=== PATIENT | female | born 1980 | race Caucasian/White ===

== ENCOUNTER 2016-07-07 09:35 | Outpatient (CLI) | payer MEDICAID ==
[~2016-07-07] VITALS: Ht 152.4 cm; Wt 70.4 kg
[~2016-07-07 09:35] MED LIST: FERR-18; PNV1TABL12
[2016-07-07 10:38] VITALS: BP 109/60; PULSE 64
[2016-07-07] MEDS: LACTATED RINGER'S 1,000 ML IV SCH ×2 (11:37→14:26)
[2016-07-07 15:37] LABS: ADD UMIC YES; URINE BILIRUBIN (Dip) NEGATIVE (NEGATIVE); URINE BLOOD (Dip) TRACE (NEGATIVE); URINE GLUCOSE (Dip) NEGATIVE (NEGATIVE); URINE KETONES (Dip) NEGATIVE (NEGATIVE); URINE LEUKOCYTE ESTERASE (Dip) 2+ (NEGATIVE); URINE NITRITE (Dip) NEGATIVE (NEGATIVE); URINE TOTAL PROTEIN (Dip) NEGATIVE (NEGATIVE); URINE UROBILINOGEN (Dip) 0.2 E.U./dL (0.1-1.0)
[2016-07-07 15:52] LABS: SQUAMOUS EPITHELIAL CELL,UR MODERATE; URINE COLOR LT. YELLOW (YELLOW); URINE RBCS 0-2 /HPF (0)
--- NOTE | 2016-07-07 22:15 | QN ---
Documentation Comment 36 years old with IUP at 38 weeks with history of section x 3, presented with complaint of mild lower abdominal cramps today. Denies any vaginal bleeding, decreased movement . Patient denies any other complaint, Denies any urinary symptoms. GA: A&O, NAD abdomen: Soft, non tender, gravid, Fundal height consistent with GA. NST: Cat 1 Irregular contractions every 12-15 min that resolved with IV hydration. UA: +2 Leuk Estrase. Patient felt comfortable and denied any pain or contractions. She lives around 3 min from the hospital Has been scheduled for repeat section next week UA, questionable for UTI, urine cutlure sent Patient will be treated for UTI with Keflex Strict labor precaution and kick counts discussed. Advised to have a follow up with her OB clinic in the next couple of days. RTC if she has any abdomina pain, decreased movement, cramps or any other concerns. Patient was completely comfortable at the discharge and denied any cramps pain or other complaint. CRIS DEL VALLE MD July 07, 2016 22:14
== END 2016-07-07 17:18 | disposition home or self-care (01) ==
LOC: OBT 09:35 → L-D 09:36 → OBT 17:18
PROVIDERS: ATTEND Obstetrics & Gynecology
DX: O26.893 Other specified pregnancy related conditions, third trimester (principal); R10.9 Unspecified abdominal pain; O09.523 Supervision of elderly multigravida, third trimester; Z3A.38 38 weeks gestation of pregnancy
CPT/HCPCS: 81001; 96360; 96361; J7120; Z7500; G0463

== ENCOUNTER 2016-07-14 07:30 | Inpatient (IN) | payer MEDICAID ==
[~2016-07-14] VITALS: Ht 157.5 cm; Wt 71.1 kg
[2016-07-19 05:28] VITALS: Ht 157.5 cm; Wt 71.1 kg
[2016-07-19] MEDS ORDERED: OXYTOCIN 30 UNITS/LR 500 ML IV SCH (05:30)
[2016-07-19] MEDS ORDERED: OXYTOCIN 30 UNITS/LR 500 ML IV PRN ×2 (05:30→13:00)
[2016-07-19] MEDS ORDERED: MISOPROSTOL 200 MCG TAB PR PRN ×2 (05:30→13:00)
[2016-07-19] MEDS ORDERED: CARBOPROST 250 MCG INJ IM PRN ×2 (05:30→13:00)
[2016-07-19] MEDS ORDERED: METHYLERGONOVINE 0.2 MG INJ IM PRN ×2 (05:30→13:00)
[2016-07-19] MEDS: LACTATED RINGER'S 1,000 ML IV SCH ×2 (05:43→06:56)
[2016-07-19 05:50] LABS: ADD SCAN DIFF NO
[2016-07-19 06:09] LABS: ABNORMAL IP MESSAGE 1; BASOPHILS % 0.4 % (0.0-2.0); EOSINOPHILS # 0.2 10^3/ul (0.0-0.5); EOSINOPHILS % 1.9 % (0.0-7.0); HEMATOCRIT 40.9 % (37.0-47.0); HEMOGLOBIN 13.2 g/dl (12.0-16.0); LYMPHOCYTES # 1.3 10^3/ul (0.8-2.9); MEAN CORPUSCULAR HEMOGLOBIN 26.9 pg (29.0-33.0); MEAN CORPUSCULAR HGB CONC 32.3 g/dl (32.0-37.0); MEAN CORPUSCULAR VOLUME 83.5 fl (82.0-101.0); MONOCYTE # 0.3 10^3/ul (0.3-0.9); MONOCYTES % 4.4 % (0.0-11.0); NEUTROPHIL # 5.9 10^3/ul (1.6-7.5); NEUTROPHILS % 75.8 % (39.0-77.0); PLATELET COUNT 183 10^3/UL (140-415); RED CELL DISTRIBUTION WIDTH 23.9 % (11.5-14.5); WHITE BLOOD COUNT 7.8 10^3/ul (4.8-10.8)
[2016-07-19 06:23] LABS: INR 0.94; PROTIME 12.6 Sec (12.2-14.2)
[2016-07-19 06:24] LABS: PARTIAL THROMBOPLASTIN TIME 30.3 Sec (25.0-35.0)
[2016-07-19] MEDS ORDERED: CEFAZOLIN 2 GM/50 ML (PMX) 50 ML IV SCH (06:30)
[2016-07-19] MEDS ORDERED: ONDANSETRON 4 MG INJ IV STA (07:17)
[2016-07-19] MEDS ORDERED: CITRIC ACID/SODIUM CITRATE 15 ML CUP PO ONE (07:30)
[2016-07-19] MEDS ORDERED: morphine SULFATE/PF (10 MG/10 ML) INJ ONE (07:55)
[2016-07-19] MEDS ORDERED: PHENYLephrine (100 MCG/ML) 5ML SYG ONE (07:57)
--- NOTE | 2016-07-19 08:09 | HP ---
Date/Time of Note Date/Time of Note DATE: 07/19/16 TIME: 07:55 OB - History Hx of Present Free Text/Dictation 36 years old female 39 weeks and 5 days she is a 4 para 3 history of 3 previous section admitted to [facility] for repeat section this patient has been under the care [facility] her was complicated with gestational diabetes diet-controlled anemia UTI which was treated with antibiotics and previous 3 section Past history Angie at age 13 history of total of 4 including present 3 previous section Allergies denies allergy to any known medication Social habit denies smoking or drinking Review of system within normal Physical examination 5 feet 2 157 pounds total weight gain during the 28 pounds Temperature 98.1 pulse 68 respirations 16 blood pressure 106/69 Head ears nose and throat negative Neck supple no thyromegaly Lungs clear to P&A Heart normal sinus rhythm no murmur Abdomen fundal height 36 cm from symphysis pubis heart rate category 1 Pelvic examination deferred Extremities no edema no varicosities Impression Intrauterine at 39 weeks and 5 days history of 3 previous section being prepared for fourth section patient has been counseled regarding the complication of the surgery especially with 3 previous section implications including but not limited to bowel and bladder injury infection hemorrhage post operative wound infection she is willing to proceed with the operation Past Family/Social History * Past Medical, Surgical, Family and Obstetric Histories reviewed from chart. OB Admission Exam Physical Exam HEENT: WNL Heart: Rhythm Normal Lungs: Clear, Equal Abdomen: WNL Extremities: Normal Reflexes: Normal Cervical Dilatation: other (Not applicable) Station: Ballotable Membranes: Intact Heart Rate: 130's Accelerations: Accelerations Present Decelerations: No Decelerations Intensity: Mild Last 72 hours Lab Results CBC & BMP 07/19/16 05:50 OB Assessment/Plan Reason for admission: other (Repeat ) JOE MONTAÑO MD Jul 19, 2016 08:05
[2016-07-19] MEDS ORDERED: PROCHLORPERAZINE 10 MG INJ IV PRN (08:30)
[2016-07-19] MEDS ORDERED: FENTAnyl 50 MCG/ML VIAL ONE (08:30)
[2016-07-19] MEDS ORDERED: DIPHENHYDRAMINE 50 MG INJ IV PRN (08:30)
[2016-07-19] MEDS ORDERED: HYDROmorphONE 1 MG/ML SYG IV PRN ×2 (08:30)
[2016-07-19] MEDS ORDERED: KETOROLAC 30 MG INJ IV PRN (08:30)
[2016-07-19] MEDS ORDERED: HYDROmorphONE (0.2 MG/ML) 10ML SYG IV PRN ×3 (08:30)
[2016-07-19] MEDS ORDERED: KETOROLAC 30 MG INJ IV ONE (08:30)
[2016-07-19] MEDS ORDERED: FENTAnyl 50 MCG/ML VIAL IV PRN (08:30)
[2016-07-19] MEDS ORDERED: ONDANSETRON 4 MG INJ IV PRN ×2 (08:30)
[2016-07-19] MEDS ORDERED: MEPERIDINE 25 MG INJ IV PRN (08:30)
[2016-07-19] MEDS ORDERED: NALOXONE (0.4 MG/ML) INJ IV PRN (08:30)
--- NOTE | 2016-07-19 09:50 | OPR ---
DATE OF OPERATION: 07/19/2016 PREOPERATIVE DIAGNOSES: 1. Intrauterine at 39 weeks and 5 days. 2. History of 3 previous sections. POSTOPERATIVE DIAGNOSES: 1. Intrauterine at 39 weeks and 5 days. 2. History of 3 previous sections. OPERATION PERFORMED: Repeat transverse low cervical section. SURGEON: Joe Montaño MD BAG PRESSER: Sheryr Franco MD ANESTHESIA: Spinal. ANESTHESIOLOGIST: Vladimir Rae MD FINDINGS: Live baby girl with the 9 and 9. DETAILS OF THE PROCEDURE: Under satisfactory spinal anesthesia, the patient was prepped and draped and placed in supine position, tilted to the left. Pfannenstiel incision was made, carried through the subcutaneous tissue. Bleeders brought under control with electrocautery. Fascia incised to the length of the incision. Rectus muscle divided in midline. Peritoneum exposed, entered through a t ransverse incision. Exploration of abdomen revealed a gravid uterus at term, normal appearing tubes and ovaries, thinned out lower segment of the uterus. Bladder flap was developed. Transverse inci ronnell was made in the lower segment of the uterus. Amniotic sac ruptured. Clear amniotic fluid note d. Live baby girl was delivered from unengaged vertex. Nasal oropharyngeal suction was performed. Baby handed to the team for immediate attention. Patient received 20 units of Pitocin. P lacenta delivered manually intact. Uterine cavity cleaned with wet sponge and drainage established. Uterus closed in 2 layers using Monocryl #1 in continuous fashion. Peritoneal cavity irrigated wi th warm saline. Sponge, needle and instruments reported to be correct. Abdominal peritoneum closed with 2-0 chromic catgut continuous. Rectus muscle approximated with 3 interrupted 2-0 chromic catg ut. Fascia closed with #1 PDS in a continuous fashion. Subcutaneous tissue approximated with inter rupted 2-0 chromic catgut. Skin closed with verónica. Estimated blood loss 600 mL. Urine bag conta ined 200 mL of clear urine. The patient tolerated the procedure well, transferred to recovery room in a good condition. Dictated By: JOE MONTAÑO MD HF/NTS Conf#: [id number] DID#: [id number]
[2016-07-19 12:00] VITALS: BP 112/66; PULSE 72; RESP 18
[2016-07-19 12:30] VITALS: BP 103/65; PULSE 74; RESP 18
[2016-07-19] MEDS ORDERED: LANOLIN 7 GM TUBE TOP PRN (13:00)
[2016-07-19] MEDS ORDERED: ACETAMINOPHEN/CODEINE #3 TAB PO PRN (13:00)
[2016-07-19] MEDS ORDERED: OXYCODONE/ACETAMINOPHEN (5/325) TAB PO PRN ×2 (13:00)
[2016-07-19] MEDS ORDERED: CEFAZOLIN 1 GM/50 ML (PMX) 50 ML IVPB SCH (13:00)
[2016-07-19] MEDS: OXYTOCIN 30 UNITS/LR 500 ML IV SCH ×2 (14:55→21:42)
[2016-07-19 16:00] VITALS: BP 103/65; PULSE 74; RESP 18
[2016-07-19 20:15] VITALS: BP 118/76; PULSE 72; RESP 19
[2016-07-19] MEDS: SENNA/DOCUSATE NA (8.6MG/50MG) TAB PO SCH (21:40)
[2016-07-20 00:05] VITALS: BP 123/78; PULSE 68; RESP 18
[2016-07-20] MEDS: OXYTOCIN 30 UNITS/LR 500 ML IV SCH ×4 (00:42→08:42)
[2016-07-20 04:10] VITALS: BP 111/79; PULSE 72; RESP 18
[2016-07-20] MEDS: LACTATED RINGER'S 1,000 ML IV SCH (05:44)
[2016-07-20] MEDS: IBUPROFEN 600 MG TAB PO SCH ×4 (06:00→23:48)
[2016-07-20 07:45] LABS: ADD SCAN DIFF NO
[2016-07-20 07:50] VITALS: BP 111/74; PULSE 66; RESP 16
[2016-07-20 08:03] LABS: ABNORMAL IP MESSAGE 1; BASOPHILS % 0.2 % (0.0-2.0); EOSINOPHILS # 0.1 10^3/ul (0.0-0.5); EOSINOPHILS % 0.5 % (0.0-7.0); HEMATOCRIT 29.4 % (37.0-47.0); HEMOGLOBIN 9.3 g/dl (12.0-16.0); LYMPHOCYTES # 0.8 10^3/ul (0.8-2.9); LYMPHOCYTES % 9.1 % (15.0-51.0); MEAN CORPUSCULAR HEMOGLOBIN 26.8 pg (29.0-33.0); MEAN CORPUSCULAR HGB CONC 31.6 g/dl (32.0-37.0); MEAN CORPUSCULAR VOLUME 84.7 fl (82.0-101.0); MEAN PLATELET VOLUME 13.1 fl (7.4-10.4); MONOCYTE # 0.3 10^3/ul (0.3-0.9); MONOCYTES % 3.6 % (0.0-11.0); NEUTROPHIL # 7.9 10^3/ul (1.6-7.5); NEUTROPHILS % 86.2 % (39.0-77.0); PLATELET COUNT 143 10^3/UL (140-415); RED BLOOD COUNT 3.47 10^6/ul (4.20-5.40); WHITE BLOOD COUNT 9.2 10^3/ul (4.8-10.8)
[2016-07-20] MEDS: SENNA/DOCUSATE NA (8.6MG/50MG) TAB PO SCH ×2 (09:03→21:41)
[2016-07-20] MEDS: ACETAMINOPHEN/CODEINE #3 TAB PO PRN (10:04)
--- NOTE | 2016-07-20 13:40 | PN ---
Date/Time of Note Date/Time of Note DATE: 07/20/16 TIME: 13:38 OB Subjective Subjective Subjective Post day 1 Afebrile vital signs are listed abdomen soft mildly distended bowel sounds lochia moderate extremities normal ambulation encouraged Laboratory Tests Test 07/20/16 07:15 White Blood Count 9.210^3/ul Red Blood Count 3.4710^6/ul Hemoglobin 9.3g/dl Hematocrit 29.4% Mean Corpuscular Volume 84.7fl Mean Corpuscular Hemoglobin 26.8pg Mean Corpuscular Hemoglobin Concent 31.6g/dl Red Cell Distribution Width 24.0% Platelet Count 10650^3/UL Mean Platelet Volume 13.1fl Neutrophils % 86.2% Lymphocytes % 9.1% Monocytes % 3.6% Eosinophils % 0.5% Basophils % 0.2% Nucleated Red Blood Cells % 0.0/100WBC Neutrophils # 7.910^3/ul Lymphocytes # 0.810^3/ul Monocytes # 0.310^3/ul Eosinophils # 0.110^3/ul Basophils # 0.010^3/ul Nucleated Red Blood Cells # 0.010^3/ul Current Medications Medications (Trade) Dose Ordered Sig/Patrick Route PRN Reason Start Time Stop Time Status Last Admin Dose Admin Lactated Ringer's 1,000 ml @ 125 mls/hr Q8H IV 07/19/16 05:25 07/19/16 12:46 DC 07/20/16 05:44 Oxytocin/Lactated Ringer's 500 ml @ 125 mls/hr ONCE IV 07/19/16 05:30 07/19/16 12:46 DC 07/19/16 10:41 Oxytocin/Lactated Ringer's 500 ml @ 0 mls/hr ONCE PRN IV For Hemorrhage Management 07/19/16 05:30 07/19/16 12:46 DC Methylergonovine Maleate (Methergine) 0.2 mg ONCE PRN IM VAGINAL BLEEDING 07/19/16 05:30 07/19/16 12:46 DC Carboprost Tromethamine (Hemabate) 250 mcg ONCE PRN IM VAGINAL BLEEDING 07/19/16 05:30 07/19/16 12:46 DC Misoprostol 1000 mcg 1,000 mcg ONCE PRN [place] VAGINAL BLEEDING 07/19/16 05:30 07/19/16 12:46 DC Cefazolin Sodium/ Dextrose (Ancef 2 Gm/50 ml (Pmx)) 50 ml @ 100 mls/hr ONCE IV 07/19/16 06:30 07/19/16 12:46 DC Ondansetron HCl (Zofran Inj) 4 mg ONCE STAT IV 07/19/16 07:17 07/19/16 07:28 DC 07/19/16 07:37 Citric Acid/ Sodium Citrate (Bicitra) 30 ml ONCE ONCE PO 07/19/16 07:30 07/19/16 07:31 DC 07/19/16 07:37 Morphine Sulfate (Duramorph) 10 mg STK-MED ONCE .ROUTE 07/19/16 07:55 07/19/16 07:56 DC Phenylephrine HCl (Mitesh-Synephrine Inj Syg) 500 mcg STK-MED ONCE .ROUTE 07/19/16 07:57 07/19/16 07:58 DC Hydromorphone HCl (Dilaudid (Rec)) 0.2 mg PACU ORDER PRN IV MILD PAIN LEVEL 1-3 07/19/16 08:30 07/19/16 12:46 DC Hydromorphone HCl (Dilaudid (Rec)) 0.4 mg PACU ORDER PRN IV MODERATE PAIN LEVEL 4-6 07/19/16 08:30 07/19/16 12:46 DC Hydromorphone HCl (Dilaudid (Rec)) 0.6 mg PACU ORDER PRN IV SEVERE PAIN LEVEL 7-10 07/19/16 08:30 07/19/16 12:46 DC Fentanyl (Sublimaze) 25 mcg PACU ORDER PRN IV MILD PAIN LEVEL 1-3 07/19/16 08:30 07/19/16 12:46 DC Ketorolac Tromethamine (Toradol) 30 mg PACU ORDER ONCE IV 07/19/16 08:30 07/19/16 08:31 DC 07/19/16 10:00 Ondansetron HCl (Zofran Inj) 4 mg PACU ORDER PRN IV NAUSEA AND/OR VOMITING 07/19/16 08:30 07/19/16 12:46 DC Meperidine HCl (Demerol) 25 mg PACU ORDER PRN IV POST-OP RIGORS 07/19/16 08:30 07/19/16 12:46 DC Diphenhydramine HCl (Benadryl) 25 mg PACU ORDER PRN IV PRURITUS 07/19/16 08:30 07/19/16 18:00 DC Naloxone HCl (Narcan) 0.1 mg Q2M PRN IV FOR RESP RATE 8 OR LESS 07/19/16 08:30 07/19/16 12:46 DC Ketorolac Tromethamine (Toradol) 30 mg Q6H PRN IV PAIN 07/19/16 08:30 07/20/16 08:29 DC 07/19/16 22:32 Hydromorphone HCl (Dilaudid) 0.2 mg Q3H PRN IV PAIN LEVEL 1-5 07/19/16 08:30 07/20/16 08:29 DC Hydromorphone HCl (Dilaudid) 0.4 mg Q3H PRN IV PAIN LEVEL 6-10 07/19/16 08:30 07/20/16 08:29 DC Ondansetron HCl (Zofran Inj) 4 mg Q6H PRN IV NAUSEA AND/OR VOMITING 07/19/16 08:30 07/20/16 08:29 DC Prochlorperazine (Compazine Inj) 10 mg ONCE PRN IV NAUSEA AND/OR VOMITING 07/19/16 08:30 07/20/16 08:29 DC Fentanyl (Sublimaze) 100 mcg STK-MED ONCE .ROUTE 07/19/16 08:30 07/19/16 08:31 DC Acetaminophen/ Codeine Phosphate (Tylenol No.3) 1 tab Q4H PRN PO PAIN LEVEL 4-6 07/19/16 13:00 Acetaminophen/ Codeine Phosphate (Tylenol No.3) 2 tab Q4H PRN PO PAIN LEVEL 7-10 07/19/16 13:00 07/20/16 10:04 Oxycodone/ Acetaminophen (Percocet (5/ 325)) 1 tab Q4H PRN PO PAIN LEVEL 4-6 07/19/16 13:00 Oxycodone/ Acetaminophen (Percocet (5/ 325)) 2 tab Q4H PRN PO PAIN LEVEL 7-10 07/19/16 13:00 Ibuprofen (Motrin) 600 mg Q6 PO 07/20/16 06:00 07/20/16 12:21 Simethicone (Mylicon) 160 mg Q8H PRN PO DISTENSION/GAS/BLOATING 07/19/16 13:00 Senna/Docusate Sodium (Senokot-S) 1 tab BID PO 07/19/16 21:00 07/20/16 09:03 Lanolin (Uaq-B-Xrmkhq) 1 applic BEDSIDE MEDICATION PRN TOP BEDSIDE FOR DANIEL TO NIPPLES 07/19/16 13:00 07/19/16 21:40 Diphtheria/ Tetanus/Acell Pertussis 0.5 ml 0.5 ml ONCE ONCE IM* 07/22/16 09:00 07/22/16 09:01 Oxytocin/Lactated Ringer's 500 ml @ 0 mls/hr ONCE PRN IV For Hemorrhage Management 07/19/16 13:00 Methylergonovine Maleate (Methergine) 0.2 mg ONCE PRN IM VAGINAL BLEEDING 07/19/16 13:00 Carboprost Tromethamine (Hemabate) 250 mcg ONCE PRN IM VAGINAL BLEEDING 07/19/16 13:00 Misoprostol 1000 mcg 1,000 mcg ONCE PRN [place] VAGINAL BLEEDING 07/19/16 13:00 Cefazolin Sodium 50 ml @ 100 mls/hr ONCE IVPB 07/19/16 13:00 07/19/16 13:29 DC 07/19/16 18:21 Oxytocin/Lactated Ringer's 500 ml @ 125 mls/hr Q4H IV 07/19/16 12:42 07/20/16 08:53 DC 07/20/16 01:36 JOE MONTAÑO MD Jul 20, 2016 13:40
[2016-07-20 16:00] VITALS: BP 120/72; PULSE 66; RESP 16
[2016-07-20 19:35] VITALS: BP 128/76; PULSE 65; RESP 18
[2016-07-21 04:10] VITALS: BP 118/59; PULSE 56; RESP 18
[2016-07-21] MEDS: IBUPROFEN 600 MG TAB PO SCH ×3 (05:37→17:55)
[2016-07-21 08:00] VITALS: BP 107/67; PULSE 62; RESP 18
[2016-07-21] MEDS: SENNA/DOCUSATE NA (8.6MG/50MG) TAB PO SCH ×2 (08:58→22:07)
--- NOTE | 2016-07-21 10:30 | PN ---
Date/Time of Note Date/Time of Note DATE: 07/21/16 TIME: 10:29 OB Subjective Subjective Subjective Post day 2 Afebrile vital signs are stable abdomen soft good bowel sounds able to pass flatus no bowel movement, incision extremities normal fleets enema recommended ambulation encouraged JOE MONTAÑO MD Jul 21, 2016 10:30
[2016-07-21] MEDS ORDERED: NA PHOSPHATE/BIPHOS 133 ML ENEMA PR ONE (11:00)
[2016-07-21 16:00] VITALS: BP 120/71; PULSE 61; RESP 18
[2016-07-21 20:00] VITALS: BP 116/62; PULSE 67; RESP 19
[2016-07-21] MEDS: ACETAMINOPHEN/CODEINE #3 TAB PO PRN (22:08)
[2016-07-22] MEDS: IBUPROFEN 600 MG TAB PO SCH ×4 (00:12→17:39)
[2016-07-22 04:34] VITALS: BP 107/51; PULSE 55; RESP 19
[2016-07-22 08:00] VITALS: BP 104/52; PULSE 57; RESP 18
[2016-07-22] MEDS ORDERED: DIPHTH/TET/ACEL PERTUSS (ADULT) 0.5 ML VIAL IM* ONE (09:00)
[2016-07-22] MEDS: SENNA/DOCUSATE NA (8.6MG/50MG) TAB PO SCH (09:43)
[2016-07-22 16:00] VITALS: BP 116/65; PULSE 61; RESP 16
--- NOTE | 2016-07-22 17:14 | DS ---
Date/Time of Note Date/Time of Note DATE: 07/22/16 TIME: 17:14 Obstetrical Discharge Record Final Diagnosis Final Diagnosis: Term delivered Other Final Diagnosis Patient to be discharged home today Patient instructed to follow-up with her [employer] in 2-3 days for staple removal Prescription for pain meds were given Section Section: Repeat Condition on Discharge Physical Assessment Last Vitals: Patient is afebrile and stable Voiding: Yes Bowel Movement: Yes Breast: Soft, non-tender Fundus: Firm Abdomen and Incision: Clean dry and intact Calf Tenderness: No Patient Condition: Good GILBERT MARIN MD Jul 22, 2016 17:14
== END 2016-07-22 18:15 | disposition home or self-care (01) | DRG 766 ==
LOC: L-D 07-19 05:15 → PP1 07-19 11:47
PROVIDERS: ADMIT Obstetrics & Gynecology; ATTEND Obstetrics & Gynecology
PROC: 10D00Z1 Extraction of Products of Conception, Low, Open Approach (ICD-10-PCS; principal; 2016-07-19 07:30)
DX: O34.211 Maternal care for low transverse scar from previous cesarean delivery (principal); Z37.0 Single live birth; Z3A.39 39 weeks gestation of pregnancy
CPT/HCPCS: 82947; 85025; 85610; 85730; 86592; 86850; 86900; 86901; 90715; 99464; J0690; J1885; J2274; J2370; J2405; J2590; J3010; J7120

== ENCOUNTER 2016-07-14 13:36 | Outpatient (CLI) | payer MEDICAID ==
[~2016-07-14] VITALS: Ht 157.5 cm; Wt 71.4 kg
[2016-07-14 14:40] VITALS: Ht 157.5 cm; Wt 71.4 kg
[2016-07-14 14:41] VITALS: BP 114/67; PULSE 68; RESP 18
[2016-07-14 14:51] LABS: ADD UMIC YES; UR BILIRUBIN (Dip) NEGATIVE (NEGATIVE); UR BLOOD (Dip) TRACE (NEGATIVE); UR CLARITY CLOUDY (CLEAR); UR COLOR LT. YELLOW (YELLOW); UR KETONES (Dip) NEGATIVE (NEGATIVE); UR LEUKOCYTE ESTERASE (Dip) 3+ (NEGATIVE); UR NITRITE (Dip) NEGATIVE (NEGATIVE); UR TOTAL PROTEIN (Dip) TRACE (NEGATIVE); UR UROBILINOGEN (Dip) 0.2 E.U./dL (0.1-1.0)
--- NOTE | 2016-07-14 15:04 | RADRPT ---
PROCEDURE: US OB. CLINICAL INDICATION: Contractions , pain TECHNIQUE: Transabdominal views of the pelvis are available for review. COMPARISON: No prior studies are available for comparison. FINDINGS: There is a single intrauterine gestation in a vertex position. The heart rate is noted at 128 bpm. The placenta is fundal. The KARMEN measures 17.4 cm. RPTAT: AA IMPRESSION: Normal KARMEN. .Aric Fitzgerald MD, MD Date Time Electronically viewed and signed by .Aric Fitzgerald MD, MD on 07/14/2016 15:04 .S/
[2016-07-14 15:12] LABS: UR BACTERIA FEW; UR SQUAMOUS EPITHELIAL CELL MANY; URINE RBCS 0-2 /HPF (0)
--- NOTE | 2016-08-26 19:09 | PN ---
Triage Information Date/Time 07/14/16 Weeks of Gestation 38 : 4 Para: 3 Assessment/Plan contractions JOE MONTAÑO MD Aug 26, 2016 19:09
== END 2016-07-14 16:00 | disposition home or self-care (01) ==
LOC: OBT 13:36 → L-D 13:37 → OBT 16:00
PROVIDERS: ATTEND Obstetrics & Gynecology
DX: O62.9 Abnormality of forces of labor, unspecified (principal); Z3A.38 38 weeks gestation of pregnancy
CPT/HCPCS: 76815; 81001; Z7500; G0463

== ENCOUNTER 2017-05-12 11:03 | Emergency (ER) | END 2017-05-12 12:59 | disposition home or self-care (01) ==